=== PATIENT | female | born 1945 | race Caucasian/White ===

== ENCOUNTER 2022-04-23 13:35 | Emergency (ER) | payer OTHER, MEDICARE ==
[~2022-04-23] VITALS: Ht 165.1 cm; Wt 72.6 kg
[2022-04-23 13:35] VITALS: BP_SYST 111
--- NOTE | 2022-04-23 13:38 | NUR ---
PT BIBA BLS FROM SNF FOR G-TUBE MALFUCTION, LEAKING AT SITE NOTED. ABDOMINAL PAD IN PLACE. PT IS AAOX4. NORMAL S1S2 NOTED RESP E/U. ON R/A. DENIES N/V/D/C. ABDOMEN SOFT, NONTENDER, NONDISTENDED. BOWEL SOUNDS ACTIVE X4. PT HAS THYROID CA AND STATES SHE IS UNABLE TO SWALLOW. PERIPHERAL PULSES NORMAL, SKIN WARM. CAP REFILL < 3 SECS. DENIES PAIN.
--- NOTE | 2022-04-23 14:28 | NUR ---
DR. LUI AT BEDSIDE TO ASSESS PT.
--- NOTE | 2022-04-23 14:33 | NUR ---
DRESSING CX PREFORMED TO G-TUBE SITE, REDNESS NOTED AREA AROUND OPENING. PT STATES THE SITE IS ITCHY. SITE CLEANSED WITH N/S, PATTED DRY GAUZE DRESSING APPLIED AND REINFORCED WITH ABDOMINAL PAD.
--- NOTE | 2022-04-23 15:18 | NUR ---
GTUBE SITE DRESSING REMOVED, SITE CLEANSED WITH NS. PATTED DRY AND GAUZE PADS PLACED. DR. BEDOYA NOW AT BEDSIDE TO INSERT NEW G-TUBE.
--- NOTE | 2022-04-23 15:37 | NUR ---
26 FR. GTUBE REPLACED BY DR. BEDOYA AT BEDSIDE. UGI WITH GASTROGRAFFIN ORDERED TO CONFIRM PLACEMENT.
[2022-04-23] MEDS ORDERED: GASTROGRAFIN 120 ML ONE (15:47)
[2022-04-23] MEDS ORDERED: KETO60CR2 TP (16:36)
--- NOTE | 2022-04-23 17:45 | NUR ---
PT INFORMED SHE WILL BE TRANSFERRED BY AMBULANCE BACK TO HER FACILITY AT 2100.
--- NOTE | 2022-04-23 19:28 | NUR ---
CALLED PT'S FACILITY AND GAVE REPORT TO BRISEIDA DARNELL. PT WILL TRANSFER AT 2100, PT RECEIVED NEW ORDER FOR FLUCONALZOLE, PT HAD NEW GTUBE 26 FR PLACED, BUT SITE IS STILL LEAKING. PT WILL NEED TO FOLLOW UP WITH HER GI SPECIALIST.
--- NOTE | 2022-04-23 19:30 | NUR ---
ENDORSED ALL CARE TO BRISEIDA VIRGEN. ALL QUESTIONS AND CONCERNS ADDRESSED.
--- NOTE | 2022-04-23 20:00 | NUR ---
Received report from BRISEIAD Chavez; assuming care of patient at this time.
--- NOTE | 2022-04-23 21:17 | NUR ---
Patient resting comfortably in bed with side rails raised. Nad noted at this time.
--- NOTE | 2022-04-23 22:15 | NUR ---
Patient given written and verbal discharge instructions and verbalizes understanding. ER MD discussed with patient the results and treatment provided. Patient in stable condition. ID arm band removed. Rx of ketoconazole cream given. Patient educated on pain management and to follow up with PMD. Pain Scale 0/10. Opportunity for questions provided and answered. Medication side effect fact sheet provided. Patient taken back to [facility] via gurney and accompanied by [facility]. Patient in stable condition upon discharge.
[2022-04-23 22:17] VITALS: BP_SYST 135
== END 2022-04-23 22:17 | disposition home or self-care (01) ==
LOC: SED 13:35
DX: K94.23 Gastrostomy malfunction (principal); B37.9 Candidiasis, unspecified; Z79.899 Other long term (current) drug therapy
CPT/HCPCS: 99285; 43762; 74240; Q9963